=== PATIENT | female | born 1990 | race Caucasian/White ===

== ENCOUNTER 2016-10-26 00:44 | Emergency (ER) | payer OTHER ==
[~2016-10-26] VITALS: Ht 170.2 cm; Wt 61.4 kg
[2016-10-26 00:47] VITALS: BP 126/78; PULSE 127; RESP 26; O2SAT 95
--- NOTE | 2016-10-26 00:54 | ED.REPORT ---
HPI-Dyspnea / Wheezing Date of Service Oct 26, 2016 ED Provider: Paul Hinson MD A 26 year old female presents to the ED complaining of SOB, cough, and fever onset yesterday morning. Associated symptoms include throat pain, generalized pain, and nasal congestion. She denies any ear pain. The patient injects heroin , her last use this morning, and she denies any infection from injection sites. The patient has a family history of asthma, but no personal history of asthma. Nursing Notes Stated Complaint: DIFFICULTY BREATHING/ FLU Chief Complaint: Respiratory Distress Nursing Notes Reviewed: Yes Allergies: Coded Allergies: No Known Allergies (Verified , 10/26/16) Scheduled Buprenorphine HCl/Naloxone HCl (Suboxone 8 mg-2 mg Sl Film) 1 Each Film 1 EACH SL BID General Time Seen by MD: 00:54 Chief Complaint Shortness of breath Hx Obtained From: Patient Arrived By: Walk-in Onset Occurred: Yesterday (yesterday morning) Symptom Duration: Since onset Severity: Current: Moderate Severity: Maximum: Moderate Recent Healthcare: No recent doctor visit Similar Sx Previous: No Past Medical History Past Medical History Patient did not recieve flu shot this year. Patient has no asthma treatment at home. Ear infections during childhood. Denies: Asthma Past Surgical History none reported. Family History Asthma. Patient has no asthma treatment at home. Smoking History Current Every Day Smoker Social History The patient injects heroin but does not smoke it. She last used this morning. She denies any infections from injection. She has recieved detox treatment in the past, but has never used suboxone. She has been using heroin for 2 years. Alcohol Use: Denies alcohol use Drug Use: Meth Ambulatory Status Independent Review of Systems Review of Systems Note: Generalized pain. Denies infections in injection sites. Constitutional: Reports: Fever Ears / Nose / Throat: Reports: Nasal congestion, Sore throat, Denies: Earache left, Earache right Respiratory: Reports: Non-productive cough, Shortness of breath Complete sys rev & neg: except as marked. Physical Exam Physical Exam Notes: Initial Vital Signs Vital Signs (First) Date Time Temp Pulse Resp B/P Pulse Ox O2 Delivery O2 Flow Rate FiO2 10/26/16 00:47 38.4 127 26 126/78 95 Room Air Initial VS: Reviewed, Vital signs abnormal General/Constitutional: Awake, Alert Neck: Full range of motion, No swelling Wheezing / Retractions: Positive: Wheezing expiratory (All lung baird. ) Cardiovascular: Heart rate NL, Regular rhythm, Heart sounds NL, No gallop, No murmurs, No rubs ENT: Atraumatic Abdomen: No guarding, No rebound Skin: Warm, Dry Neurologic: Oriented X3, Speech NL Head / Eyes: Normocephalic, PERRL, EOMI Wrist / Hand: No swelling, No edema Interpretation & Diagnostics X-Ray Chest Interpretation Chest Xray Interpretation: IMPRESSION: Normal 10/26/2016, 0326 Interpretation / Wet Read by: Wet read ED physician Re-Eval/Medical Decision Med Decision/Clinical Course 26-year-old female with wheezing, but no personal history of asthma. She also has a fever. She does smokes heroin but does not use IV heroin. Her wheezing cleared with albuterol nebulizer. She was trained with an albuterol inhaler and spacer. Chest x-ray is negative but she is given antibiotics because of her chronic abuse of her lungs with smoking heroin. Arrangements were made for her to get started on Suboxone and be seen in [facility]. Source of Hx: Old records Re-Evaluation/Progress #1: Time of Eval: 00:57 Re-Evaluation/Progress Note: Explained plan to give patient suboxone prescription. Re-Evaluation/Progress #2: Time of Eval: 02:30 Re-Evaluation/Progress Note: Rechecked patient who reports that their breathing is improved. Explained plan for discharge. Patient understands and agrees with the plan. Emphasized that suboxane must be used later than 24 hours after last heroin use. Explained that patient needs to get insurance that will get them detox treatment. Explained plan for chest XRay. At recheck, patient is still wheezing. Counseled Regarding: Diagnosis, Need for follow-up, When/why to return to ED Discharge & Departure Impression: Primary Impression: Reactive airway disease Asthma severity: mild intermittent Asthma complication type: with acute exacerbation Qualified Code: J45.21 - Mild intermittent asthma with (acute) exacerbation Additional Impression: Opioid dependence with withdrawal Disposition: Home Discharge Condition All VS Reviewed: Yes Condition: Stable Patient Instructions: Buprenorphine/Naloxone (By mouth), How to Use a Metered- dose Inhaler (ED), Reactive Airways Disease (ED) Additional Instructions: No evidence of pneumonia, but I would recommend covering with an antibiotic because your history of smoking and your current fever. Azithromycin 250 mg, 2 pills today then one daily for 4 more days, #6 dispensed. Albuterol inhaler with spacer 2 puffs every 4-6 hours as needed, #1 dispensed. Prednisone 20 mg by mouth twice a day for 10 days, #10 prescribed. Buprenorphine/naloxone 8/2 tabs or film, 1 dissolved orally twice a day, #28 dispensed. Do not start this medication until it is been 24 hours since her last heroin use. Contact the priority access appointment line at [facility] at [phone] to schedule an appointment as soon as possible and to get assistance with transferring your insurance. Contact [facility] directly to transfer your insurance. Referrals: Charles Smith MD (PCP) Kyaraibe Attestation Portions of this note were transcribed by Tigre Zambrano. I, Dr. Hinson personally performed the history, physical exam and medical decision-making; I reviewed and confirmed the accuracy of the information in the transcribed note. Signed by: Scot Siddiqi, 10/26/2016 [id number]. copies to: Charles Smith MD, Howard L MD Oct 26, 2016 00:54 Tigre Zambrano Oct 26, 2016 01:02
[2016-10-26] MEDS ORDERED: predniSONE 20 mg Tablet PO ONE (01:00)
[2016-10-26] MEDS ORDERED: Albuterol-Ipratropium 3 mL Inhalation Solution NEB ONE (01:00)
[2016-10-26] MEDS ORDERED: Albuterol 2.5 mg/3 mL Inhalation Solution NEB ONE (01:00)
[2016-10-26 01:18] VITALS: PULSE 110; RESP 24; O2SAT 97
[2016-10-26] MEDS ORDERED: _Albuterol-HFA 60 Puff Inhaler INHALATION PRN (01:50)
[2016-10-26] MEDS ORDERED: _Azithromycin 250 mg Tablet PO SCH (03:35)
[2016-10-26] MEDS ORDERED: BUPR1FIL3 SL (03:44)
[2016-10-26 03:53] VITALS: BP 107/70; PULSE 102; RESP 18; O2SAT 97
--- NOTE | 2016-10-26 08:26 | DRSVH ---
PROCEDURE: X-RAY CHEST, TWO VIEWS ([id number]) INDICATIONS: cough, fever TECHNIQUE: 2 views of the chest were acquired. COMPARISON: [facility], CR, CHEST 2VW, 09/18/2010, 13:45. FINDINGS: Surgical changes and devices: None. Lungs and pleura: No pleural effusions or pneumothorax. Lungs are clear. Mediastinum: Mediastinal contours are normal. Heart size is normal. Bones and chest wall: No suspicious bony abnormalities. Soft tissues appear unremarkable. IMPRESSION: No acute process. Dictated by: Lilliana Roth M.D. on 10/26/2016 at 8:24 Approved by: Lilliana Roth M.D. on 10/26/2016 at 8:24
== END 2016-10-26 03:54 | disposition home or self-care (01) ==
LOC: SED 00:54
DX: J45.21 Mild intermittent asthma with (acute) exacerbation (principal); F11.23 Opioid dependence with withdrawal; R50.9 Fever, unspecified; R07.0 Pain in throat; R09.81 Nasal congestion; F17.200 Nicotine dependence, unspecified, uncomplicated
CPT/HCPCS: 71020; 94640; 94664; 99284; J7613; J7620